=== PATIENT | female | born 1975 | race Caucasian/White ===

== ENCOUNTER 2021-01-27 11:45 | Emergency (ER) | payer MEDICAID ==
[~2021-01-27] VITALS: Ht 160 cm; Wt 86.2 kg
[2021-01-27] MEDS ORDERED: ADDERALL 15 MG15 MG PO (12:15)
--- NOTE | 2021-01-28 12:13 | EKG ---
[facility] [address] [facility] [address] [facility] [place], [place] [address] Signed Sinus tachycardia Otherwise normal ECG No previous ECGs available Confirmed by JUANCHO JEONG DO ([id number]) on 01/28/2021 12:13:41 PM Electronically Signed By: JUANCHO JEONG DO 01/28/21 1213 PATIENT NAME: LEANNA MACHADO Electrocardiogram DATE OF : 73 PHYSICIAN: JUANCHO JEONG DO REPORT #: [id number] REPORT IS CONFIDENTIAL AND NOT TO BE RELEASED WITHOUT AUTHORIZATION
== END 2021-01-27 19:19 | disposition home or self-care (01) ==
LOC: ED 11:45
DX: R45.851 Suicidal ideations (principal); F43.10 Post-traumatic stress disorder, unspecified; Z20.822 Contact with and (suspected) exposure to COVID-19; Z87.891 Personal history of nicotine dependence; Z88.8 Allergy status to other drugs, medicaments and biological substances
CPT/HCPCS: 80053; 81001; 84443; 84703; 85025; 93005; 93010; 99285-25; C9803; G0480; U0003